=== PATIENT | female | born 1955 | race Caucasian/White ===

== ENCOUNTER 2019-06-05 12:30 | Outpatient (CLI) | payer MEDICARE, OTHER, SELFPAY ==
--- NOTE | 2019-06-05 12:46 | XR_ITS ---
WS: [id number] XR lumbar spine 2-3V* [id number] REASON FOR EXAM: ACUTE RIGHT SIDED LOW BACK PAIN FINDINGS: A mild thoracolumbar rotoscoliosis convex to the right. The disc spaces L5-S1 show narrowing. The angle weightbearing of L3 is posterior the base of the sacrum with increased lordosis. The lumbosacral angle was essentially normal. XR/XR lumbar spine 2-3V* [id number] IMPRESSION: Increased lordosis. Degenerated disc changes L5-S1.
== END 2019-06-05 12:31 | disposition home or self-care (01) ==
LOC: RAD 12:43
PROVIDERS: PCP Chiropractor Orthopedic; Visit Provider Chiropractor Orthopedic
DX: M47.897 Other spondylosis, lumbosacral region (principal); M54.5 Low back pain
CPT/HCPCS: 72100

== ENCOUNTER → 2021-02-13 10:33 | Outpatient (BNVA) | payer MEDICARE, OTHER, SELFPAY | PROVIDERS: PCP Chiropractor Orthopedic; Visit Provider Family Medicine | DX: J02.9 Acute pharyngitis, unspecified (principal) | CPT/HCPCS: 87880 ==

== ENCOUNTER 2021-07-20 14:53 | Observation (INO) | payer MEDICARE, OTHER, SELFPAY ==
[2021-07-20] VITALS (18 sets, daily range): BP systolic 103–137; BP diastolic 50–73; PULSE 71–97; RESP 16–20; TEMP 36.9; O2SAT 86–98; BMI 32.8
--- NOTE | 2021-07-20 16:23 | W.ED.SOB ---
HPI - SOB/Dyspnea General: Chief Complaint: Shortness of Breath/Dyspnea Stated Complaint: Low oxygen, high blood pressure Time Seen by Provider: 07/20/21 16:21 History of Present Illness: HPI Narrative: Ms. Vivas is a 66-year-old lady with history of hypertension, hyperlipidemia, diabetes on oral agents, and COPD with continued tobacco abuse who presents to the emergency department due to shortness of breath. She has noted more shortness of breath especially with exertion over the past few days, cough is mildly more productive than normal. Symptoms are moderate to severe in intensity and limit ability to exert herself. She presented to outside clinic where she was found to have hypoxemia in the 70s and hypertension. She was recommended EMS transport to the emergency department however declined and was transported with oxygen tank. She does not have baseline oxygen requirement. No associated chest pain. No other significant changes in health. No other specific changes in health, exacerbating, or alleviating factors identified. Pertinent past history: COPD Onset (ago): day(s) Timing: constant and progressively worsening Severity: severe Exacerbating factors: exertion Review of Systems General: Reports: 10 or more systems reviewed and unremarkable except in HPI and below PFS ED PFSH: Medical History (Updated 07/20/21 @ 20:35 by Jose Dueñas MD) COPD (chronic obstructive pulmonary disease) Diabetes Hyperlipidemia Hypertension Neck mass Benign Surgical History No significant past surgical history Family History (Updated 07/20/21 @ 20:35 by Jose Dueñas MD) Other CAD (coronary artery disease) Social History Smoking and tobacco status: current every day smoker Physical Exam Const: COMMON NORMALS: alert GENERAL APPEARANCE: cooperative and well developed HENMT: COMMON NORMALS: normocephalic and atraumatic HEAD & SCALP: normocephalic and atraumatic Eye: COMMON NORMALS: conjunctivae normal CONJUNCTIVA: Yes conjunctivae normal SCLERA: sclerae normal Neck/C-Spine: COMMON NORMALS: supple GENERAL: Yes trachea midline Resp: EFFORT & INSPECTION: Yes able to speak in complete sentences and Yes tachypneic AUSCULTATION: wheezes and diminished lung sounds Cardio: COMMON NORMALS: regular rate and regular rhythm RATE: regular rate RHYTHM: regular rhythm GI: COMMON NORMALS: Soft to palpation PALPATION: Yes Soft to palpation and No Tenderness to palpation present (GI) PERCUSSION: normal to percussion Extremity: GENERAL: Yes normal exam except as noted and No edema Neuro: COMMON NORMALS: moves all extremities SENSORIUM/ORIENTATION: Yes alert and No Orientation impaired Psych: COMMON NORMALS: mental status grossly normal and Normal thought process present THOUGHT PROCESS: Normal thought process present Course ED course: - Patient was seen and evaluated by me at bedside - Patient placed on cardiac monitors, IV access obtained - Initial evaluation notable for exam as above. Poor aeration of lungs with wheezes noted, new oxygen requirement. - Labs and xrays personally interpreted by me. EKGs reviewed showing sinus rhythm with no STEMI. -RT breathing treatments and COPD exacerbation treatment ordered. - Labs notable for no leukocytosis, normal hemoglobin. ABG with hypoxemia on supplemental oxygen, mild hypercapnia which is likely chronic given compensated pH. Metabolic panel with mild evidence of dehydration. Delta troponin negative. BNP only minimally elevated. - Imaging notable for no lobar consolidation or pneumothorax on chest x-ray. - Upon serial reexamination after treatment the patient was mildly improved with additional RT treatment though patient remains requiring oxygen. - Based on patient history, evaluation, and testing as interpreted the most likely cause of the patient's condition is acute exacerbation of COPD with hypoxemia - The results of ED evaluation were discussed with the patient including plan for admission due to requirement for level of care not available if discharged to prevent significant worsening/deterioration. - Admitting service was contacted and Dr Dueñas with the hospitalist service agreed to admit the patient - Patient was admitted without further deterioration or significant events. Note: Click bubbles or prepopulated ballard in note writing are used for assistance with data collection and billing and are inherently more limited than narrative and other text portions of this note. Please use narrative for additional clinical history and defer to narrative/free test for any case of contradictory information. If information appears in only free text or click bubble it should be considered present or absent as reported. Please contact note video game script writer for clarifications of clinical information or contradictory information. MDM is a brief summary, contradictory or erroneous seeming information should be clarified and full note should be reviewed. Vital Signs: Vital signs: Vital Signs Temperature 97.5 F L 07/21/21 16:42 Pulse Rate 88 07/21/21 16:42 Respiratory Rate 16 07/21/21 16:42 Blood Pressure 134/68 07/21/21 16:42 Pulse Oximetry 93 07/21/21 16:42 MDM - SOB/Dyspnea Medical Decision Making 66-year-old lady with history of COPD presenting with shortness of breath. Patient has new oxygen requirement and despite multiple breathing treatments still with oxygen requirement. Admitted for further management of COPD exacerbation. Medical Records I reviewed the patient's medical records. Lab Data I reviewed the patient's lab results. : 07/21/21 00:45 07/21/21 00:45 Labs/Radiology: Radiology Impressions Chest X-Ray 07/20/21 16:36 IMPRESSION: No acute cardiopulmonary abnormality. Chest CT 07/21/21 11:38 IMPRESSION: No acute pathology in the chest. Laboratory Results WBC 7.2 10^3/uL (4.0-10.0) 07/20/21 18:17 Corrected WBC Cancelled 07/20/21 17:11 RBC 4.36 10^6/uL (4.1-5.3) 07/20/21 18:17 Hgb 13.5 g/dL (11.5-15.3) 07/20/21 18:17 Hct 42.3 % (37.0-47.0) 07/20/21 18:17 MCV 97.0 fl (81-99) 07/20/21 18:17 MCH 31.0 pg (28.0-34.0) 07/20/21 18:17 MCHC 31.9 g/dL (30.0-36.0) 07/20/21 18:17 RDW 14.2 % (12.1-15.1) 07/20/21 18:17 Plt Count 426 10^3/cmm (130-400) H 07/20/21 18:17 MPV 8.3 fL (7.4-10.4) 07/20/21 18:17 Gran % Cancelled 07/20/21 17:11 Neut % (Auto) 71.1 % 07/20/21 18:17 Lymph % (Auto) 15.2 % 07/20/21 18:17 Hettinger % (Auto) 10.8 % 07/20/21 18:17 Eos % (Auto) 1.5 % 07/20/21 18:17 Baso % (Auto) 1.0 % 07/20/21 18:17 Neut # (Auto) 5.15 10^3/uL (1.8-7.7) 07/20/21 18:17 Lymph # (Auto) 1.1 10^3/uL (0.8-4.8) 07/20/21 18:17 Hettinger # (Auto) 0.8 10^3/uL (0.2-0.9) 07/20/21 18:17 Eos # (Auto) 0.1 10^3/uL (0.0-0.8) 07/20/21 18:17 Baso # (Auto) 0.1 10^3/uL (0.0-0.1) 07/20/21 18:17 Absolute Gran (auto) Cancelled 07/20/21 17:11 Nucleated RBC % (auto) 0 % 07/20/21 18:17 Nucleated RBCs # 0.0 /100WBC 07/20/21 18:17 Specimen Type Arterial 07/20/21 16:45 Sample Site Radial, left 07/20/21 16:45 ABG pH 7.43 (7.35-7.45) 07/20/21 16:45 ABG pCO2 45.4 mmHg (35-45) H 07/20/21 16:45 ABG pO2 63.6 mmHg (80.0-100.0) L 07/20/21 16:45 ABG HCO3 29.7 mmol/L (22-26) H 07/20/21 16:45 ABG Base Excess 4.6 mmol/L (-2.0-2.0) H 07/20/21 16:45 Micheal Test Pos 07/20/21 16:45 Hematocrit 40.5 % (37-47) 07/20/21 16:45 Hgb O2 Saturation 89.8 % (95-100) L 07/20/21 16:45 Carboxyhemoglobin 3.3 %THgb (0.4-20.1) 07/20/21 16:45 Methemoglobin 0.8 % (0.4-1.5) 07/20/21 16:45 Total Hemoglobin 13.2 g/dL (12-16) 07/20/21 16:45 O2 Delivery Device Nc 07/20/21 16:45 O2 Liters/Min 2.0 % 07/20/21 16:45 FiO2 28.0 % 07/20/21 16:45 Rides Attendant ID Cak 07/20/21 16:45 Sodium 132 mmol/L (136-145) L 07/20/21 18:15 Potassium 4.1 mmol/L (3.5-5.1) 07/20/21 18:15 Chloride 97 mmol/L (98-107) L 07/20/21 18:15 Carbon Dioxide 23 mmol/L (22-29) 07/20/21 18:15 Anion Gap 16.1 (5-19) 07/20/21 18:15 BUN 10 mg/dL (8-23) 07/20/21 18:15 Creatinine 0.6 mg/dL (0.5-0.9) 07/20/21 18:15 GFR Calculation 99.7 mL/min (90-130) 07/20/21 18:15 Glucose 100 mg/dL (65-115) 07/20/21 18:15 Estimat Average Glucose 123 07/20/21 17:15 Hemoglobin A1c 5.9 % (4.0-6.0) 07/20/21 17:15 Calculated Osmolality 273 mOsm/kg (285-295) L 07/20/21 18:15 Lactic Acid 1.5 mmol/L (0.5-2.2) 07/20/21 17:11 Calcium 8.4 mg/dL (8.5-10.5) L 07/20/21 18:15 Total Bilirubin 0.2 mg/dL (0.15-1.2) 07/20/21 18:15 AST 17 U/L (0-32) 07/20/21 18:15 ALT 15 U/L (0-33) 07/20/21 18:15 Alkaline Phosphatase 73 IU/L (35-105) 07/20/21 18:15 Troponin T Baseline 8 ng/L (0-10) 07/20/21 18:15 NT-Pro-B Natriuret Pep 222 pg/mL (0-125) H 07/20/21 18:15 Total Protein 7.0 g/dL (6.6-8.7) 07/20/21 18:15 Albumin 3.7 g/dL (3.5-5.2) 07/20/21 18:15 Globulin 3.3 g/dL (1.3-4.6) 07/20/21 18:15 Procalcitonin 0.03 ng/mL (0-0.5) 07/20/21 18:15 Discharge Plan Discharge Patient Disposition: Placed in Observation Admit Provider: Jose Dueñas Clinical Impression: Acute exacerbation of chronic obstructive airways disease, Acute respiratory failure with hypoxemia Discharge Diet: Cardiac and Diabetic Discharge Activity: Increase activity as tolerated and Oxygen as instructed Coding Level of Care Code ED Utility Tractor Operator for Chg Fwd Exam Comprehensive
--- NOTE | 2021-07-20 16:36 | XRR_ITS ---
PROCEDURE INFORMATION: Exam: XR Chest Exam date and time: 07/20/2021 5:04 PM Age: 66 years old Clinical indication: Shortness of breath; Additional info: SOB TECHNIQUE: Imaging protocol: XR of the chest. Views: 1 view. COMPARISON: No relevant prior studies available. FINDINGS: Lungs: A calcified granuloma is present in the left upper lobe. The lungs are otherwise clear. Pleural spaces: Unremarkable. No pleural effusion. No pneumothorax. Heart/Mediastinum: Unremarkable. No cardiomegaly. Bones/joints: Several old right rib fractures are noted. No acute fracture is detected. XR/XR chest 1V portable [id number] IMPRESSION: No acute cardiopulmonary abnormality.
--- NOTE | 2021-07-20 16:36 | ECG_ITS ---
[facility] Test Date: 2021-07-20 Pat Name: Ghazal Vivas Department: Room: Gender: Female Solderer Dipper: : 1955 Requested By: Alan Salcedo Order Number: [id number] Kandis MD: Gina Santos M.D. Measurements Intervals [place] Rate: 72 P: 71 [place]: 160 QRS: -36 QRSD: 80 T: 75 QT: 353 QTc: 388 Interpretive Statements SINUS RHYTHM LEFT AXIS DEVIATION [QRS AXIS < -30] POSSIBLE RIGHT VENTRICULAR CONDUCTION DELAY [RSR (QR) IN V1/V2] No previous ECG available for comparison Electronically Signed On 07-20-2021 19:44:57 CDT by Gina Santos M.D. [id number]
[2021-07-20] MEDS: ipratropium-albuterol 3 mL Neb INHALATION (16:47)
[2021-07-20] MEDS: doxycycline 100 MG in sodium chloride 0.9% (plus) 100 ML IV (16:48)
[2021-07-20 16:56] LABS: ABG PCO2 45.4 mmHg (35-45); ABG PH Result 7.43 (7.35-7.45); Arterial Blood Gas Hematocrit 40.5 % (37-47); Base Excess ABG 4.6 mmol/L (-2.0-2.0); Blood Gas Allen Test Pos; Blood Gas Operator Identificat CAK; Blood Gas Sample Site Radial, left; Blood Gas Sample Type Arterial; Carboxyhemoglobin 3.3 %THgb (0.4-20.1); HCO3 ABG 29.7 mmol/L (22-26); HGB O2 Sat 89.8 % (95-100); Methemoglobin 0.8 % (0.4-1.5); Oxygen Device NC; PO2 ABG 63.6 mmHg (80.0-100.0); Total Hemoglobin 13.2 g/dL (12-16)
[2021-07-20 18:04] LABS: Lactic Sepsis W/Reflex 1.5 mmol/L (0.5-2.2)
--- NOTE | 2021-07-20 18:36 | ECG_ITS ---
[facility] Test Date: 2021-07-20 Pat Name: Ghazal Vivas Department: Room: Gender: Female Goggles Assembler: : 1955 Requested By: Alan Salcedo Order Number: [id number] Kandis MD: Gina Santos M.D. Measurements Intervals [place] Rate: 79 P: 75 [place]: 185 QRS: -22 QRSD: 84 T: 72 QT: 357 QTc: 410 Interpretive Statements SINUS RHYTHM BORDERLINE LEFT AXIS DEVIATION [QRS AXIS < -20] LOW QRS VOLTAGE IN PRECORDIAL LEADS [QRS DEFLECTION < 1.0 mV IN CHEST LEADS] POSSIBLE RIGHT VENTRICULAR CONDUCTION DELAY [RSR (QR) IN V1/V2] Compared to ECG 07/20/2021 16:57:04 Low QRS voltage now present Electronically Signed On 07-20-2021 20:04:54 CDT by Gina Santos M.D. [id number]
[2021-07-20 18:42] LABS: Basophils # 0.1 10^3/uL (0.0-0.1); Eosinophils # 0.1 10^3/uL (0.0-0.8); Eosinophils % 1.5 %; Hematocrit 42.3 % (37.0-47.0); Hemoglobin 13.5 g/dL (11.5-15.3); Lymphocytes # 1.1 10^3/uL (0.8-4.8); Lymphocytes % 15.2 %; Mean Corpuscular HGB Conc 31.9 g/dL (30.0-36.0); Mean Platelet Volume 8.3 fL (7.4-10.4); Monocytes # 0.8 10^3/uL (0.2-0.9); Monocytes % 10.8 %; Neutrophils # 5.15 10^3/uL (1.8-7.7); Neutrophils % 71.1 %; Nucleated Red Blood Cells % 0 %; Platelet Count 426 10^3/cmm (130-400); Red Blood Count 4.36 10^6/uL (4.1-5.3); Red Cell Distribution Width 14.2 % (12.1-15.1); White Blood Count 7.2 10^3/uL (4.0-10.0)
[2021-07-20 18:50] LABS: Alanine Aminotransferase 15 U/L (0-33); Albumin Level 3.7 g/dL (3.5-5.2); Alkaline Phosphatase 73 IU/L (35-105); Anion Gap 16.1 (5-19); Aspartate Amino Transferase 17 U/L (0-32); Blood Urea Nitrogen 10 mg/dL (8-23); Calcium 8.4 mg/dL (8.5-10.5); Carbon Dioxide 23 mmol/L (22-29); Chloride 97 mmol/L (98-107); Globulin 3.3 g/dL (1.3-4.6); Glomerular Filtration Rate 99.7 mL/min (90-130); Glucose 100 mg/dL (65-115); Osmolality Calculated 273 mOsm/kg (285-295); Potassium 4.1 mmol/L (3.5-5.1); Sodium 132 mmol/L (136-145); Total Bilirubin 0.2 mg/dL (0.15-1.2)
[2021-07-20 18:52] LABS: Troponin(5th) Baseline 8 ng/L (0-10)
[2021-07-20 19:17] LABS: NT Pro B Type Natriuretic Pept 222 pg/mL (0-125)
--- NOTE | 2021-07-20 19:53 | P.HP_ITS ---
Providers/Chief Complaint Primary Care Provider: Rupa Lowe Chief Complaint: Low oxygen, high blood pressure History of Present Illness Ghazal Vivas is a 66 year old female who is an active smoker, smokes 1 pack/day, she is a schoolteacher by profession, has history of COPD, has not seen any sweeping compound blender in the past, presented today with chief complaint of shortness of breath. Patient is stating that her symptoms started on Sunday when she noticed that her O2 saturation was dropping low 80s on room air, prior to Sunday she was noticing clear sputum production with her cough, shortness of breath on exertion, she has not noticed any fever, chest pain, diarrhea, swelling of her legs, runny nose, runny eyes. She is not vaccinated for COVID- 19. Her is also a heavy smoker. She has not used any antibiotics rec ently. She takes high dose of Cardizem for her blood pressure. No previous history of VT, CHF. Diagnosis in the ER revealed acute hypoxia without respiratory failure she is requiring 2 L of oxygen which is new, I requested D-dimer to rule out PE, clinically does not show signs of heart failure,, chest x-ray unremarkable, received doxycycline in the ER, no leukocytosis or fever blood gas revealed hypoxia Mild hyponatremia Review of Systems Const: Denies: fever(s) or chills Eyes: Denies: change in vision ENMT: Denies: throat pain Card: Denies: chest pain Resp: Reports: dyspnea and productive cough GI: Denies: abdominal pain : Denies: flank pain Musc: Denies: neck pain Skin/Breast: Denies: rash Neuro: Denies: headache(s) Psych: Denies: anxiety Endo: Denies: polyuria Cirilo/Lymph: Denies: easy bruising All/Imm: Denies: urticaria Medications/Allergies Home Medications Medication Instructions Recorded Confirmed Last Taken Type atorvastatin 80 mg tablet (Lipitor) 80 mg PO DAILY 02/13/21 07/20/21 Unknown History diltiazem HCl 360 mg 360 mg PO DAILY 02/13/21 07/20/21 Unknown History capsule,extended release 24 hr (Cardizem CD) fenofibrate nanocrystallized 48 mg 48 mg PO DAILY 02/13/21 07/20/21 Unknown History tablet (Tricor) metformin 500 mg tablet 500 mg PO DAILY 02/13/21 07/20/21 Unknown History olmesartan 20 mg tablet (Benicar) 20 mg PO DAILY 02/13/21 07/20/21 Unknown History albuterol sulfate 90 mcg/actuation 2 puff INHALATION Q6H PRN 07/20/21 07/20/21 Unknown History aerosol inhaler (ProAir HFA) fluticasone 250 mcg-salmeterol 50 1 inh INHALATION BID 07/20/21 07/20/21 Unknown History mcg/dose blistr powdr for inhalation (Advair Diskus) Allergies Allergy/AdvReac Type Severity Reaction Status Date / Time No Known Allergies Allergy Verified 07/20/21 16:10 PFSH Acute PFSH: Medical History (Updated 07/20/21 @ 20:35 by Jose Dueñas MD) COPD (chronic obstructive pulmonary disease) Diabetes Hyperlipidemia Hypertension Neck mass Benign Surgical History No significant past surgical history Family History (Updated 07/20/21 @ 20:35 by Jose Dueñas MD) Other CAD (coronary artery disease) Social History Smoking and tobacco status: current every day smoker Vitals/I&O/Wt Last Vital Signs Temp 98.4 F 07/20/21 16:08 Pulse 75 07/20/21 18:45 Resp 18 07/20/21 18:45 BP 129/50 07/20/21 18:45 Pulse Ox 92 07/20/21 18:45 Weight last 48 hrs Weight 82.554 kg Physical Exam Narrative: Very pleasant female Currently is saturating 91% on 2 L nasal cannula No signs of respiratory distress Nose conversational dyspnea Strong smell of nicotine in the room Patient does not show signs of heart failure S1, S2 Abdomen soft nontender ER, PERRLA Bilateral breath sounds with mild expiratory wheezing, diffuse, no audible stri simon or wheezing No use of respiratory sensory muscles EOMI, PERRLA Nonfocal neuro exam Data : 07/20/21 18:17 07/20/21 18:15 A&P Assessment and plan (1) Acute exacerbation of chronic obstructive airways disease: Status: Acute (2) Hypoxemia: Status: Acute (3) Smoker: Status: Acute Plan Acute COPD exacerbation Dyspnea on exertion Requiring 2 L of oxygen for acute hypoxia Requested D-dimer Will give her azithromycin for anti-inflammatory effect She received doxycycline in the ER No signs of pneumonia Afebrile no leukocytosis Will need home O2 evaluation tomorrow morning Outpatient pulmonology follow-up for pulmonary function test She is an active smoker Counseled on smoking cessation, I also told her about her risk of right-sided heart failure, cor pulmonale, patient is stating that no one ever told her about these complications, she is willing to follow-up with a sweeping compound blender Will give her nicotine patch Full code Consistent carb diet Hypertension: Continue antihypertensive regimen Sliding scale Full code I will request echo for dyspnea exertion evaluation to rule out pulmonary hypertension Attestations Medical Necessity Statement*: Anticipating discharge within 48 hours overnight monitor needed for her acute COPD exacerbation will need home O2 evaluation before discharge Time Spent in Patient Care: 40mins Coding Level of Care Code Acute Small Arms Artillery Repairer for Nicole Benedict Diagnoses Acute exacerbation of chronic obstructive airways disease J44.1 Hypoxemia R09.02 Smoker F17.200
[2021-07-20 20:43] LABS: D Dimer 0.42 ug/mIFEU (0-0.59)
[2021-07-20 21:06] LABS: Procalcitonin 0.03 ng/mL (0-0.5)
[2021-07-20 22:21] LABS: Estmated Average Glucose 123; Hemoglobin A1C 5.9 % (4.0-6.0)
--- NOTE | 2021-07-20 22:36 | ECG_ITS ---
[facility] Test Date: 2021-07-20 Pat Name: Ghazal Vivas Department: Room: 279 Gender: Female Medical Concierge: : 1955 Requested By: Alan Salcedo Order Number: [id number] Kandis MD: Mynor Solis M.D. Measurements Intervals [place] Rate: 71 P: 72 [place]: 152 QRS: -52 QRSD: 77 T: 72 QT: 355 QTc: 387 Interpretive Statements SINUS RHYTHM WITH SINUS ARRHYTHMIA LOW QRS VOLTAGE IN PRECORDIAL LEADS [QRS DEFLECTION < 1.0 mV IN CHEST LEADS] PATTERN CONSISTENT WITH PULMONARY DISEASE POSSIBLE RIGHT VENTRICULAR CONDUCTION DELAY [RSR (QR) IN V1/V2] LEFT ANTERIOR FASCICULAR BLOCK [QRS AXIS <= -45, QR IN I, RS IN II] Compared to ECG 07/20/2021 18:10:50 Left anterior fascicular block now present Electronically Signed On 07-21-2021 11:05:09 CDT by Mynor Solis M.D. [id number]
[2021-07-20] MEDS: nicotine 21 mg Patch 1 PATCH TRANSDERMA (23:33)
[2021-07-20] MEDS: enoxaparin 40 mg/0.4 mL Syringe SUBCUT (23:33)
[2021-07-21] VITALS (11 sets, daily range): BP systolic 134–146; BP diastolic 63–83; PULSE 72–88; RESP 16–20; TEMP 36.4–36.9; O2SAT 85–95
[2021-07-21 01:20] LABS: Basophils % 0.3 %; Hematocrit 42.2 % (37.0-47.0); Hemoglobin 13.6 g/dL (11.5-15.3); Lymphocytes # 0.5 10^3/uL (0.8-4.8); Lymphocytes % 8.1 %; Mean Corpuscular HGB Conc 32.2 g/dL (30.0-36.0); Mean Corpuscular Hemoglobin 30.9 pg (28.0-34.0); Mean Corpuscular Volume 95.9 fl (81-99); Mean Platelet Volume 8.7 fL (7.4-10.4); Monocytes # 0.1 10^3/uL (0.2-0.9); Neutrophils # 5.33 10^3/uL (1.8-7.7); Neutrophils % 90.3 %; Nucleated Red Blood Cells % 0 %; Platelet Count 447 10^3/cmm (130-400); Red Cell Distribution Width 14.2 % (12.1-15.1); White Blood Count 5.9 10^3/uL (4.0-10.0)
[2021-07-21 01:41] LABS: Anion Gap 16.2 (5-19); Blood Urea Nitrogen 11 mg/dL (8-23); Calcium 8.9 mg/dL (8.5-10.5); Carbon Dioxide 26 mmol/L (22-29); Chloride 96 mmol/L (98-107); Glomerular Filtration Rate 83.5 mL/min (90-130); Glucose 300 mg/dL (65-115); Magnesium 1.8 mg/dL (1.7-2.3); Osmolality Calculated 289 mOsm/kg (285-295); Potassium 4.2 mmol/L (3.5-5.1); Sodium 134 mmol/L (136-145)
[2021-07-21 01:45] LABS: Troponin 5 6HR 9.23 ng/L (0-10)
--- NOTE | 2021-07-21 02:29 | USCV_ITS ---
Ghazal Vivas Age: 66 Gender: F : 1955 Exam Date: 07/21/2021 02:37 Ordering Phys: Jose Dueñas MD Technologist: AUGUSTINE [place] [facility] [place]: Concern for pulmonary hypertension BP: / HR: 78 Rhythm: Sinus Technical Quality: Adequate MEASUREMENTS (Male / Female) Normal Values 2D ECHO LV Diastolic Diameter PLAX 3.9 cm 4.2 - 5.9 / 3.9 - 5.3 cm LV Systolic Diameter PLAX 2.6 cm IVS Diastolic Thickness 1.2 cm 0.6 - 1.0 / 0.6 - 0.9 cm IVS Systolic Thickness 1.5 cm LVPW Diastolic Thickness 1.2 cm 0.6 - 1.0 / 0.6 - 0.9 cm LVPW Systolic Thickness 1.5 cm LVOT Diameter 2.0 cm LV Ejection Fraction 2D Teich 62.8 % LV Ejection Fraction MOD 2C 72.8 % LV Ejection Fraction 2C AL 72.9 % LA Diameter 3.2 cm LA Width 3.5 cm LA Height 5.1 cm RA Width 2.7 cm RA Height 4.5 cm Aorta at Sinotubular Diameter 2.0 cm M-MODE Aortic Annulus Diameter 2.2 cm LA Ao Ratio MM 1.6 MV E Point Septal Separation 1.0 cm DOPPLER AV Peak Velocity 170.3 cm/s LVOT Peak Velocity 114.0 cm/s AV Area Cont Eq vti 2.5 cm squared AV Area Cont Eq pk 2.0 cm squared MV Peak Velocity 158.0 cm/s MV Area PHT 1.9 cm squared Mitral E to A Ratio 0.5 MV E' Velocity 44.5 cm/s Mitral E to MV E' Ratio 10.3 Mitral E to LV E' Lateral Ratio 9.9 Mitral E to LV E' Septal Ratio 10.7 TR Peak Velocity 119.5 cm/s TR Peak Gradient 5.7 mmHg TR Mean Velocity 81.0 cm/s TR Mean Gradient 3.0 mmHg TR Velocity Time Integral 22.5 cm Right Atrial Pressure 10.0 mmHg Pulmonary Artery Systolic Pressu 15.7 mmHg PV Peak Velocity 125.0 cm/s RV Acceleration Time 0.1 s RV Ejection Time 0.4 s RV AcT/ET 0.3 FINDINGS Left Ventricle Normal left ventricular size, systolic function and wall thickness, with no regional wall motion abnormalities. Grade I/IV diastolic dysfunction (abnormal relaxation filling pattern), normal to mildly elevated filling pressures. Left ventricular ejection fraction is estimated at 65 %. Right Ventricle Normal right ventricular size and systolic function. Normal right ventricular systolic pressure. Right Atrium The right atrium is normal in size. Left Atrium The left atrium is normal in size. Mitral Valve Structurally normal mitral valve without significant stenosis or prolapse. There is no mitral regurgitation. Aortic Valve Structurally normal aortic valve without significant sclerosis or stenosis. There is no aortic regurgitation. Tricuspid Valve Structurally normal tricuspid valve. Trace tricuspid valve regurgitation. Pulmonic Valve Pulmonic valve not well visualized. Pericardium Normal pericardium without effusion. Aorta Normal ascending aorta dimension. CONCLUSIONS Normal left ventricular size, systolic function and wall thickness, with no regional wall motion abnormalities. Grade I/IV diastolic dysfunction (abnormal relaxation filling pattern), normal to mildly elevated filling pressures. Left ventricular ejection fraction is estimated at 65 %. Dr. Mynor Solis MD (Electronically Signed) Final Date: 21 Jul 2021 10:47 S
[2021-07-21 02:32] LABS: Troponin 5 6HR Delta 1.23 ng/L (0-12)
[2021-07-21 06:30] LABS: Glucose Point of Care 145 mg/dL (70-110)
[2021-07-21] MEDS: ipratropium-albuterol 3 mL Neb INHALATION (08:11)
[2021-07-21] MEDS: insulin lispro 100 unit/1 mL SUBCUT ×2 (09:55→13:28)
[2021-07-21] MEDS: azithromycin 250 mg Tablet 500 MG PO (09:56)
[2021-07-21] MEDS: dilTIAZem ER (24HR) 180 mg Capsule 360 MG PO (09:56)
[2021-07-21] MEDS: predniSONE 20 mg Tablet 40 MG PO (09:57)
[2021-07-21] MEDS: atorvastatin 40 mg Tablet 80 MG PO (09:57)
[2021-07-21] MEDS: losartan 50 mg Tablet PO (09:57)
--- NOTE | 2021-07-21 11:29 | PM.DCS ---
Discharge Providers Date of Admission: 07/20/21 19:54 Date of Discharge: July 21, 2021 Attending Provider at Admission: Jose Dueñas MD Attending Provider at Discharge: Penny Gong MD Primary Care Provider: Rupa Lowe Diagnoses at Discharge Discharge Diagnosis (1) Acute exacerbation of chronic obstructive airways disease: Status: Acute (2) Hypoxemia: Status: Acute (3) Smoker: Status: Acute Reason for Visit Reason for Visit: Low oxygen, high blood pressure Brief History: Ghazal Vivas is a 66 year old female who is an active smoker, smokes 1 pack/day, she is a schoolteacher by profession, has history of COPD, has not seen any supervisor delivery department in the past, presented today with chief complaint of shortness of breath.? Patient is stating that her symptoms started on Sunday when she noticed that her O2 saturation was dropping low 80s on room air, prior to Sunday she was noticing clear sputum production with her cough, shortness of breath on exertion, she has not noticed any fever, chest pain, diarrhea, swelling of her legs, runny nose, runny eyes.? She is not vaccinated for COVID-19.? Her is also a heavy smoker.? She has not used any antibiotics recently.? She takes high dose of Cardizem for her blood pressure.? No previous history of NE, CHF. Diagnosis in the ER revealed acute hypoxia without respiratory failure she is requiring 2 L of oxygen which is new, I requested D-dimer to rule out PE, clinically does not show signs of heart failure,, chest x-ray unremarkable, received doxycycline in the ER, no leukocytosis or fever blood gas revealed hypoxia Mild hyponatremia Hospital Course Hospital Course Patient was admitted for a COPD exacerbation. Echo showed grade 2 diastolic dysfunction. Patient did feel better next day. Home O2 evaluation was done and she qualified for 2 L. Procalcitonin was low. No evidence of infiltrate on x-ray. Patient is on Advair and albuterol at home. Spiriva was added at discharge. I discharged her on 5 days of azithromycin and 5 days of oral prednisone. She is to have outpatient pulmonary function testing and follow-up with pulmonology. Patient is agreeable to see pulmonology. She did have trace edema bilateral lower extremities, BNP 233. Patient is able to lay flat without feeling short of breath. No clinical signs of heart failure. Patient will be discharged home today. She will follow-up outpatient with PCP and pulmonology. Physical Exam Narrative: General: Alert oriented x3, patient seen sitting up in bed on 2 L nasal cannula. HEENT: Normocephalic, atraumatic, EOMI, breathing normally, no acute distress Cardio: Regular rate rhythm, normal S1-S2, no murmurs, JVD not elevated Respiratory: Diminished bilateral air entry especially at bases, no gross wheezes or rhonchi present. GI: Abdomen soft, nontender, nondistended, bowel sounds + Behavior: Appropriate and cooperative Extremities: no edema, no cyanosis Discharge Data Studies Completed and Pending Completed Studies During Hospitalization Category Date Time Status XR chest 1V portable [id number] Urgent Exams 07/20/21 16:36 Completed CV. echo complete* [id number] Routine Ultrasound 07/21/21 02:29 Completed Pending at discharge Category Date Time Status MRSA by PCR Stat Lab 07/21/21 00:21 Received Radiology Impressions Chest X-Ray 07/20/21 16:36 IMPRESSION: No acute cardiopulmonary abnormality. Laboratory Results WBC 5.9 10^3/uL (4.0-10.0) 07/21/21 00:45 Corrected WBC Cancelled 07/20/21 17:11 RBC 4.40 10^6/uL (4.1-5.3) 07/21/21 00:45 Hgb 13.6 g/dL (11.5-15.3) 07/21/21 00:45 Hct 42.2 % (37.0-47.0) 07/21/21 00:45 MCV 95.9 fl (81-99) 07/21/21 00:45 MCH 30.9 pg (28.0-34.0) 07/21/21 00:45 MCHC 32.2 g/dL (30.0-36.0) 07/21/21 00:45 RDW 14.2 % (12.1-15.1) 07/21/21 00:45 Plt Count 447 10^3/cmm (130-400) H 07/21/21 00:45 MPV 8.7 fL (7.4-10.4) 07/21/21 00:45 Gran % Cancelled 07/20/21 17:11 Neut % (Auto) 90.3 % 07/21/21 00:45 Lymph % (Auto) 8.1 % 07/21/21 00:45 [place] % (Auto) 1.0 % 07/21/21 00:45 Eos % (Auto) 0.0 % 07/21/21 00:45 Baso % (Auto) 0.3 % 07/21/21 00:45 Neut # (Auto) 5.33 10^3/uL (1.8-7.7) 07/21/21 00:45 Lymph # (Auto) 0.5 10^3/uL (0.8-4.8) L 07/21/21 00:45 [place] # (Auto) 0.1 10^3/uL (0.2-0.9) L 07/21/21 00:45 Eos # (Auto) 0.0 10^3/uL (0.0-0.8) 07/21/21 00:45 Baso # (Auto) 0.0 10^3/uL (0.0-0.1) 07/21/21 00:45 Absolute Gran (auto) Cancelled 07/20/21 17:11 Nucleated RBC % (auto) 0 % 07/21/21 00:45 Nucleated RBCs # 0.0 /100WBC 07/21/21 00:45 D-Dimer 0.42 ug/mIFEU (0-0.59) 07/20/21 20:09 Specimen Type Arterial 07/20/21 16:45 Sample Site Radial, left 07/20/21 16:45 ABG pH 7.43 (7.35-7.45) 07/20/21 16:45 ABG pCO2 45.4 mmHg (35-45) H 07/20/21 16:45 ABG pO2 63.6 mmHg (80.0-100.0) L 07/20/21 16:45 ABG HCO3 29.7 mmol/L (22-26) H 07/20/21 16:45 ABG Base Excess 4.6 mmol/L (-2.0-2.0) H 07/20/21 16:45 Micheal Test Pos 07/20/21 16:45 Hematocrit 40.5 % (37-47) 07/20/21 16:45 Hgb O2 Saturation 89.8 % (95-100) L 07/20/21 16:45 Carboxyhemoglobin 3.3 %THgb (0.4-20.1) 07/20/21 16:45 Methemoglobin 0.8 % (0.4-1.5) 07/20/21 16:45 Total Hemoglobin 13.2 g/dL (12-16) 07/20/21 16:45 O2 Delivery Device Nc 07/20/21 16:45 O2 Liters/Min 2.0 % 07/20/21 16:45 FiO2 28.0 % 07/20/21 16:45 Composite Laminator ID Cak 07/20/21 16:45 Sodium 134 mmol/L (136-145) L 07/21/21 00:45 Potassium 4.2 mmol/L (3.5-5.1) 07/21/21 00:45 Chloride 96 mmol/L (98-107) L 07/21/21 00:45 Carbon Dioxide 26 mmol/L (22-29) 07/21/21 00:45 Anion Gap 16.2 (5-19) 07/21/21 00:45 BUN 11 mg/dL (8-23) 07/21/21 00:45 Creatinine 0.7 mg/dL (0.5-0.9) 07/21/21 00:45 GFR Calculation 83.5 mL/min (90-130) L 07/21/21 00:45 Glucose 300 mg/dL (65-115) H 07/21/21 00:45 POC Glucose 145 mg/dL (70-110) H 07/21/21 06:24 Estimat Average Glucose 123 07/20/21 17:15 Hemoglobin A1c 5.9 % (4.0-6.0) 07/20/21 17:15 Calculated Osmolality 289 mOsm/kg (285-295) 07/21/21 00:45 Lactic Acid 1.5 mmol/L (0.5-2.2) 07/20/21 17:11 Calcium 8.9 mg/dL (8.5-10.5) 07/21/21 00:45 Magnesium 1.8 mg/dL (1.7-2.3) 07/21/21 00:45 Total Bilirubin 0.2 mg/dL (0.15-1.2) 07/20/21 18:15 AST 17 U/L (0-32) 07/20/21 18:15 ALT 15 U/L (0-33) 07/20/21 18:15 Alkaline Phosphatase 73 IU/L (35-105) 07/20/21 18:15 Troponin T Baseline 8 ng/L (0-10) 07/20/21 18:15 Troponin T 120 Minute 7.90 ng/L (0-10) 07/20/21 20:15 Delta Troponin T -0.10 ABS# (0-10) L 07/20/21 20:15 Troponin T Hi Sens 6Hr 9.23 ng/L (0-10) 07/21/21 00:45 Troponin T Hi Sens 6Hr Delta 1.23 ng/L (0-12) 07/21/21 00:45 C-Reactive Protein 11.0 mg/L (0.0-4.9) H 07/21/21 00:45 NT-Pro-B Natriuret Pep 222 pg/mL (0-125) H 07/20/21 18:15 Total Protein 7.0 g/dL (6.6-8.7) 07/20/21 18:15 Albumin 3.7 g/dL (3.5-5.2) 07/20/21 18:15 Globulin 3.3 g/dL (1.3-4.6) 07/20/21 18:15 Procalcitonin 0.03 ng/mL (0-0.5) 07/20/21 18:15 Vitals Last Vital Signs Temp 98.4 F 07/21/21 08:00 Pulse 80 07/21/21 08:20 Resp 18 07/21/21 08:20 BP 146/63 07/21/21 09:57 Pulse Ox 93 07/21/21 08:20 Discharge Plan Discharge Patient Disposition: Home Condition: Stable Prescriptions: New azithromycin 250 mg Tablet 500 mg PO DAILY 5 Days Qty: 5 0RF prednisone 20 mg Tablet 40 mg PO DAILY 5 Days Qty: 10 0RF Spiriva Respimat 2.5 mcg/actuation mist 2 inh inhalation DAILY 30 Days Qty: 4 0RF Continued olmesartan [Benicar] 20 mg tablet 20 mg PO DAILY 0RF atorvastatin [Lipitor] 80 mg tablet 80 mg PO DAILY 0RF diltiazem HCl [Cardizem CD] 360 mg capsule,extended release 24hr 360 mg PO DAILY 0RF ipratropium-albuterol 0.5 mg-3 mg(2.5 mg base)/3 mL solution for nebulization 3 ml inhalation ONCE Qty: 1 0RF fluticasone propion-salmeterol [Advair Diskus] 250-50 mcg/dose blister with device 1 inh inhalation BID 0RF albuterol sulfate [ProAir HFA] 90 mcg/actuation HFA aerosol inhaler 2 puff inhalation Q6H PRN (Reason: Shortness Of Breath) 0RF fenofibrate nanocrystallized 145 mg tablet 145 mg PO DAILY 0RF Changed metformin 500 mg tablet 500 mg PO BID 30 Days Qty: 60 0RF Discharge Orders: Discharge Order (Routine); Ordered 07/21/21 Ordered By: Penny Gong Other Ambulatory Orders: DME: Oxygen (Order) Location: None Selected Ordered By: Penny Gong Pulmonary Function Screen with Bronchodilator (Routine) Timeframe: 1 Week Facility: [facility] - Location: Respiratory Therapy Ordered By: Penny Gong [facility] Rupa Lowe FNP, [facility] [Primary Care Provider] - 4-7 days Datar,Juan Sarah MD [Physician] - 2 weeks Discharge Diet: Cardiac and Diabetic Discharge Activity: Increase activity as tolerated and Oxygen as instructed Patient Instructions: COPD, Using Oxygen at Home (DC), COPD Stoplight, Opioid Safety Discharge Attestations Time Spent in Discharge Care*: less than 30 min Quality Metrics Clinical Quality Measures [ No reported AMI, CVA or VTE this stay] Coding Level of Care Code Acute g DC note Diagnoses Acute exacerbation of chronic obstructive airways disease J44.1 Hypoxemia R09.02 Smoker F17.200
--- NOTE | 2021-07-21 11:38 | CTR_ITS ---
PROCEDURE INFORMATION: Exam: CT Chest Without Contrast; Diagnostic Exam date and time: 07/21/2021 1:07 PM Age: 66 years old Clinical indication: Shortness of breath; Additional info: Shortness of breath and elevated BP TECHNIQUE: Imaging protocol: Diagnostic computed tomography of the chest without contrast. Radiation optimization: All CT scans at this facility use at least one of these dose optimization techniques: automated exposure control; mA and/or kV adjustment per patient size (includes targeted exams where dose is matched to clinical indication); or iterative reconstruction. COMPARISON: CR (CHEST, ) 07/20/2021 5:04 PM RADIATION DOSE METRICS: Total DLP (mGy-cm): 588.67 FINDINGS: Lungs: No consolidation. There is a small calcified granulomas in the left upper lobe. There is tiny calcified lymph nodes in the left hilar region, likely sequela of previous granulomatous disease. Centrilobular emphysema is present. Minimal parenchymal scarring noted in the left upper lobe. Pleural spaces: Unremarkable. No pneumothorax. No pleural effusion. Heart: Normal heart size. Coronary atherosclerotic calcifications seen. No pericardial effusion. Lymph nodes: Unremarkable. No enlarged lymph nodes. Vasculature: Mild diffuse atherosclerotic disease is present. Gallbladder and bile ducts: Cholelithiasis is present. No pericholecystic inflammatory changes to suggest cholecystitis. Spleen: There is tiny calcific densities scattered throughout the spleen, likely sequela of previous granulomatous disease. The spleen is otherwise unremarkable. Bones/joints: Old fracture deformities noted in the right ribcage. Soft tissues: Unremarkable. CT/CT chest con [id number] IMPRESSION: No acute pathology in the chest.
[2021-07-21 20:56] LABS: Glucose Point of Care 184 mg/dL (70-110)
[2021-07-21 20:56] LABS: Glucose Point of Care 174 mg/dL (70-110)
== END 2021-07-21 16:47 | disposition home or self-care (01) ==
LOC: ER 20:53 → MEDSURG 21:17
PROVIDERS: Admitting Provider Internal Medicine; Emergency Provider Emergency Medicine; PCP Chiropractor Orthopedic; Visit Provider Internal Medicine
DX: J44.1 Chronic obstructive pulmonary disease with (acute) exacerbation (principal); J96.01 Acute respiratory failure with hypoxia; F17.210 Nicotine dependence, cigarettes, uncomplicated; I10 Essential (primary) hypertension; E78.5 Hyperlipidemia, unspecified; Z82.49 Family history of ischemic heart disease and other diseases of the circulatory system
CPT/HCPCS: 36415; 36416; 36600; 71045; 71250; 80048; 80053; 82805; 82962; 83036; 83605; 83735; 83880; 84145; 84484; 85025; 85378; 86140; 87641; 93005; 93306; 94640; 94664; 96365; 96372; 96375; 99285; G0378; J1650; J1815; J2930; J3490; J7512; J7611; Q0144